=== PATIENT | female | born 1990 | race Caucasian/White ===

== ENCOUNTER → 2021-04-17 | Day surgery (SDC) | payer OTHER ==
[~2021-04-17] VITALS: Ht 162.6 cm; Wt 78.9 kg
[~2021-04-17] MED LIST: ADDERALL 20 MG20 M1 PO; CALCIUM MAGNES1 EAC2 PO; COLLAGEN PLUS1 EACH PO; ESCITALOPRAM OX20 MG PO; VITAMIN B COMP1 EACH PO; VITAMIN D325 MC3 PO; WELLBUTRIN SR150 MG PO
--- NOTE | ~2021-04-17 | O ---
[address] [address] OPERATIVE REPORT Name: LEIF COYNE Room #: REG [facility]#: [id number] Admission: 04/17/21 Attend Phys: Joe Escobar MD Discharge: Date of : 88 Report #: [id number] THIS REPORT FOR: cc: FAM - Family physician unknown FAM - Family physician unknown Joe Escobar MD ~ DOC #: [id number] Joe Escobar MD DATE OF SERVICE: 04/17/2021 SERVICE: Orthopedics. FACILITY: [facility]. SURGEON: Joe Escobar MD ASSOCIATE MANAGER AFFILIATE MARKETING: Rachelle Montelongo NP INDICATION FOR ASSOCIATE MANAGER AFFILIATE MARKETING: Arthroscope management, suture management, graft preparation, assistance with the repair and reconstruction. PREOPERATIVE DIAGNOSIS: 1. Right knee pain. 2. Right knee anterior cruciate ligament tear. 3. Right knee displaced bucket-handle medial meniscus tear. 4. Grade II medial collateral ligament sprain. POSTOPERATIVE DIAGNOSIS: 1. Right knee pain. 2. Right knee anterior cruciate ligament tear. 3. Right knee displaced bucket-handle medial meniscus tear. 4. Right knee peripheral lateral meniscus tear. 5. Grade II medial collateral ligament sprain. PROCEDURE PERFORMED: 1. Right knee arthroscopically assisted ACL reconstruction with allograft. 2. Right knee medial and lateral meniscus repairs. COMPLICATIONS: None. DRAINS: None. SPECIMENS: None. ANESTHESIA: General with regional. [address] [address] OPERATIVE REPORT Name: LEIF COYNE Room #: REG [facility]#: [id number] Admission: 04/17/21 Attend Phys: Joe Escobar MD Discharge: Date of : 88 Report #: [id number] FINDINGS: 1. ACL GraftLink with cortical fixation on the femur and the tibia. 2. Displaced bucket handle medial meniscus tear, treated with Arnoldo fiber stitch suture anchor x3, two on the femoral side, one on the tibial side in horizontal and vertical mattress fashion. 3. Peripheral longitudinal tear at the meniscal capsular junction of the posterior horn of the lateral meniscus extending to the ligament of Cy, treated with a total of six 1.9 mm Arthrex FiberTape sutures. 4. 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 HISTORY: The patient is a 31-year-old female who sustained an injury to her right knee about 2 weeks ago. She then had a second injury where she then developed significant pain medially with a locked knee attributable to a displaced bucket handle medial meniscus tear and MCL sprain. She was indicated for surgical treatment with ACL fixation and treatment of possible lateral meniscus tear as indicated. Risks, benefits, alternatives, and indication of surgery discussed with her in detail. Risks include, but not limited to pain, bleeding, infection, injuring nerves or blood vessels, persistent pain despite surgical intervention, failure of any repairs, progression of preexisting chondral injury, stiffness, need for further surgery as well as complications related to anesthesia. Despite the risks, she wished to proceed. PROCEDURE IN DETAIL: After right lower extremity was correctly identified in the preoperative holding area as the operative extremity, the patient underwent regional nerve block. She was then taken to the operating room where general anesthesia was induced without complications, padded appropriately. Prophylactic antibiotics were administered in appropriate time. Tourniquet was applied to right leg. Right lower extremity was then prepped and draped in standard sterile fashion. Timeout procedure performed. Esmarch were used, tourniquet inflated to 250 mmHg. Standard anterolateral viewing portal was established followed by anteromedial working portal. Diagnostic arthroscopy revealed the above findings. There were no loose bodies. There was some synovitis as well as hematoma within the knee and on initial placement of the camera, it was almost impossible even to visualize the medial meniscus bucket handle tear due to hematoma and the frayed stump of the ACL that was sitting in front of the knee. Shaver was used starting initially in extension working along the retropatellar tendon fat pad down to the hematoma and the ACL and eventually, the medial meniscus could be seen in a displaced position with the posterior horn subluxed anteriorly. The anterior horn remained attached. There was some fraying at the tear surface on the displaced portion, but overall the tissue quality was good. This was peripheral and I felt it was worth saving in this 31-year-old patient and so the leg was manipulated and a probe used to reduce the meniscus and then it stayed in a reduced position thereafter. I proceeded with meniscal repair of the medial meniscus tear at this point. A [address] [address] OPERATIVE REPORT Name: LEIF COYNE Room #: REG [facility] Gladys#: [id number] Admission: 04/17/21 Attend Phys: Joe Escobar MD Discharge: Date of : 88 Report #: [id number] total of 3 Arthrex suture anchors were utilized for the repair achieving two on the femoral side and one on the tibial side. After this repair was completed, on visual assessment as well as on palpation with the probe, this was felt to be anatomically reduced at the meniscal capsular junction. A biter was used to trim an inner rim partial thickness radial tear just posterior to the repair site and then this was all stabilized with a shaver with performing a light chondroplasty of the medial compartment. Note that the patellofemoral compartment was normal and healthy. The leg was placed in the [id number] position to allow visualization of the lateral compartment and this is where this large longitudinal tear could be visualized. Ultimately, this was irreparable tear. I used the shaver and a meniscal rasp was similar to the medial side to abrade the meniscal capsular junction and then proceeded with the repair, placed a total of 6 sutures in a cerclage fashion around the tear, which closed down the tear line very well. This was a longitudinal peripheral tear. The first stitch was placed through the anteromedial portal and incorporated the meniscal root, which was still attached to the ligament of Cy where it had torn between the two and this provided good compression at this point and then we worked laterally from there placing two more sutures ultimately through the anteromedial portal and then switching the scope during the repair and placing three of the tape sutures in a similar fashion through the anterolateral portal. The meniscal tissue appeared to be well repaired and was stable to probing and so no further work was required other than some light chondroplasty in the lateral compartment. The leg was then placed in a 90-degree position. Arthrex FlipCutter device was used to create a 10 x 23 mm socket in the femur and then we used a similar technique to create a 10 mm x approximately 30 mm socket in the tibia and then sutures were used in the Arthrex GraftLink allograft was then passed into the knee seated to the depth of 20 mm on the femoral side and then back passed into the tibia and seated to a depth of 20 on this side as well. Note that the bony debris had been lavaged out the knee initially. The knee was then placed in extension with a reverse Fauzia maneuver performed and then the large size tibial button was fixed on the tibia providing good fixation. Then, the knee was taken through a cyclic range of motion to eliminate creep in the system and then the graft length was tensioned on both the femoral and the tibial side. Fauzia was normal at this point, as was a pivot shift. Of note, she does have some valgus laxity still from the MCL sprain, which will heal conservatively. After stability testing and range of motion been completed, the TightRopes were retensioned and good fixation was maintained. We placed the scope in the lateral portal to ensure that the button was sitting flush against the lateral femoral cortex and was not trapped by the IT band. All suture tails were then tied and cut and then the instruments were removed after the arthroscopic effusion was drained. The portal sites were closed. Sterile dressing was applied followed by a compression stocking and a hinged knee brace. [address] [address] OPERATIVE REPORT Name: LEIF COYNE Room #: REG [facility].#: [id number] Admission: 04/17/21 Attend Phys: Joe Escobar MD Discharge: Date of : 88 Report #: [id number] POSTOPERATIVE PLAN: Weightbearing as tolerated with the knee brace locked in extension x6 weeks. Range of motion is 0-90 degrees x3 weeks and then will be on restricted range of motion thereafter. Joe Escobar MD MPM/NOO By: [id number] Joe Escobar MD /nt
[2021-04-17 12:15] VITALS: BP 111/63
[2021-04-17 15:34] VITALS: BP 111/63
== END | disposition home or self-care (01) ==
LOC: OR 10:43
PROVIDERS: ATTEND Orthopaedic Surgery Sports Medicine
DX: M25.561 Pain in right knee (principal); S83.511A Sprain of anterior cruciate ligament of right knee, initial encounter; S83.211A Bucket-handle tear of medial meniscus, current injury, right knee, initial encounter; S83.261A Peripheral tear of lateral meniscus, current injury, right knee, initial encounter; S83.411A Sprain of medial collateral ligament of right knee, initial encounter; G43.909 Migraine, unspecified, not intractable, without status migrainosus; F32.9 Major depressive disorder, single episode, unspecified; F41.9 Anxiety disorder, unspecified; Z98.890 Other specified postprocedural states; Z79.899 Other long term (current) drug therapy; Z88.0 Allergy status to penicillin; X58.XXXA Exposure to other specified factors, initial encounter; Y93.89 Activity, other specified; Y92.89 Other specified places as the place of occurrence of the external cause; Y99.8 Other external cause status
CPT/HCPCS: 50010; 50101; 50386; 50405; 51320; 52001; 52282; 52313; 56524; 56525; 56527; 57103; 57180; 57259; 58504; 58589; 58682; 58875; 58876; 58877; 58878; 58879; 58880; 62110; 62900; 70005

== ENCOUNTER 2021-08-01 08:27 | Day surgery (SDC) | payer OTHER ==
[~2021-08-01] VITALS: Ht 165.1 cm; Wt 77.1 kg
[2021-08-01 09:00] VITALS: BP 102/56
--- NOTE | 2021-08-02 10:36 | O ---
[facility] [place] [address] OPERATIVE REPORT Name: LEIF COYNE Room #: [facility]#: [id number] Admission: 08/01/21 Attend Phys: Joe Escobar MD Discharge: 08/01/21 Date of : 88 Report #: [id number] THIS REPORT FOR: cc: FAM - Family physician unknown FAM - Family physician unknown Joe Escobar MD ~ DATE OF SERVICE: 08/01/2021 SERVICE: Orthopedics. FACILITY: [facility]. SURGEON: Joe Escobar MD LUMBER BUYER: Dr. Rachelle Montelongo. PREOPERATIVE DIAGNOSES: 1. Right knee stiffness. 2. Status post right knee anterior cruciate ligament reconstruction with medial and lateral meniscus repair on 04/17/2021. POSTOPERATIVE DIAGNOSES: 1. Right knee stiffness. 2. Status post right knee anterior cruciate ligament reconstruction with medial and lateral meniscus repair on 04/17/2021. 3. Right knee adhesions. PROCEDURE: Right knee arthroscopic lysis of adhesions with manipulation under anesthesia. COMPLICATIONS: None. DRAINS: None. SPECIMENS: None. ANESTHESIA: General. FINDINGS: 1. Intact ACL reconstruction as well as medial and lateral meniscus repairs. 2. Minimal chondromalacia. 3. Adhesions within the anterior compartment, resected with a shaver. 4. Full range of motion at conclusion of the procedure. HISTORY: The patient is a 31-year-old female, who sustained an injury to her right knee earlier this year and underwent a complex reconstruction with ACL [facility] [address] [place] [address] OPERATIVE REPORT Name: LEIF COYNE Room #: DEP [facility].#: [id number] Admission: 08/01/21 Attend Phys: Joe Escobar MD Discharge: 08/01/21 Date of : 88 Report #: [id number] reconstruction with an allograft as well as medial and lateral meniscus repairs. She had initially gone through physical therapy and had a couple of falls, which slowed her recovery and then her insurance company cut her off on additional physical therapy despite our efforts to secure additional visits. As a result, then, she developed significant stiffness and was ultimately in need to return to the operating room for lysis of adhesions. We did an MRI, which confirmed the presence of adhesions within the anterior compartment, and that the menisci appeared to have healed satisfactorily. Risks, benefits, alternatives and indications for surgery discussed with her in detail. Risks include but not limited to pain, bleeding, infection, injuring nerves or blood vessels, persistent pain despite surgical intervention, failure of any repairs, progression of any preexisting chondral injury, stiffness, need for further surgery as well as complications related to anesthesia. Despite the risks, she wished to proceed. DESCRIPTION OF PROCEDURE: After right lower extremity was correctly identified in the preoperative holding area as the operative extremity, the patient was taken to the operating room where general anesthesia was induced without complication. She was padded appropriately. Prophylactic antibiotics with clindamycin were administered in appropriate time. Tourniquet was applied to left to right leg. Right lower extremity was then prepped and draped in standard sterile fashion. Timeout procedure was performed. Esmarch was used, tourniquet inflated to 250 mmHg. Standard anterolateral viewing portal was established, followed by an anteromedial working portal using the previous portal sites. Diagnostic arthroscopy revealed significant amount of bleeding and clotting within the knee. Following the examination under anesthesia, there was a slight effusion present as well. The EUA did result in some audible release of adhesions within the anterior aspect of the knee. There was fibrosis noted in the front of the knee. Shaver was used to resect this working from the notch down to the intermeniscal ligament and then between the intermeniscal ligament and the backside of the patellar tendon. I made an additional accessory anteromedial portal in order to have better access to the anterior aspect of the knee. Valgus maneuver was performed. The medial compartment was evaluated. The medial meniscus was satisfactorily healed. After the repair, the ACL looked very good without any evidence of impingement, fraying, or attenuation. Leg was placed in [id number]. The posterior horn lateral meniscus repair had fully healed, and there was no residual instability. There was some mild fraying of the inner rim of the lateral meniscus, so biter was used to gently debride in a minimal fashion to even up the inner rim contour. The synovectomy was completed as was the lysis of adhesions. The patellofemoral joint was assessed and found to be normal. The arthroscopic effusion was drained. The instrument were removed. The knee was assessed again. She had full extension and actually went [address] [address] OPERATIVE REPORT Name: STANFORDLEIF PRUETT Ross Room #: DEP [facility] Gladys#: [id number] Admission: 08/01/21 Attend Phys: Joe Escobar MD Discharge: 08/01/21 Date of : 88 Report #: [id number] into hyperextension. She had full flexion without restriction. There were no complications. All counts were reported as correct. Portal sites were closed. Sterile dressing was applied. The patient was awakened from anesthesia and taken to recovery room in stable condition. <ELECTRONICALLY SIGNED> By: Joe Escobar MD 08/02/21 1036 [id number] [id number] Joe Escobar MD /nt
== END 2021-08-01 11:50 | disposition home or self-care (01) ==
LOC: OR 08:27 → TBA 11:11 → OR 11:50
PROVIDERS: ATTEND Orthopaedic Surgery Sports Medicine
DX: M25.461 Effusion, right knee (principal); M23.8X1 Other internal derangements of right knee; M23.261 Derangement of other lateral meniscus due to old tear or injury, right knee; G43.909 Migraine, unspecified, not intractable, without status migrainosus; F32.9 Major depressive disorder, single episode, unspecified; F41.9 Anxiety disorder, unspecified; Z98.890 Other specified postprocedural states; Z79.899 Other long term (current) drug therapy; Z20.822 Contact with and (suspected) exposure to COVID-19; Z88.0 Allergy status to penicillin
CPT/HCPCS: 50010; 50101; 50405; 56527; 57103; 57180; 58589; 58680; 58682; 62110; 62900; 70005